=== PATIENT | male | born 1950 | race Caucasian/White ===

== ENCOUNTER 2019-02-18 11:14 | Inpatient (IN) | payer OTHER ==
[~2019-02-18] VITALS: Ht 172.7 cm; Wt 110.8 kg
[2019-02-18] MEDS ORDERED: diltiazem 5mg/ml 5ml inj. IV ONE (11:35)
[2019-02-18 11:48] LABS: BASOPHILS # (AUTO) 0.1 X10'3 (0-0.2); LYMPHOCYTES # (AUTO) 0.8 X10'3 (1.1-4.8); MEAN PLATELET VOLUME 8.8 FL (7.4-10.4); NEUTROPHILS % (AUTO) 89.4 % (42-75)
[2019-02-18 11:50] LABS: BASOPHILS % (AUTO) 0.3 % (0-1); EOSINOPHILS % (AUTO) 0.1 % (0-6); HEMATOCRIT 42.9 % (42.0-52.0); HEMOGLOBIN 14.4 g/dl (14.0-17.9); LYMPHOCYTES % (AUTO) 2.8 % (21-51); MEAN CORPUSCULAR HEMOGLOBIN 30.5 PG (27.0-31.0); MEAN CORPUSCULAR HGB CONC 33.7 g/dL (33.0-36.5); MEAN CORPUSCULAR VOLUME 90.7 FL (78-98); MONOCYTES % (AUTO) 7.4 % (2-12); NEUTROPHILS # (AUTO) 23.9 X10'3 (1.8-7.7); PLATELET COUNT 199 X10'3 (140-440); RED BLOOD COUNT 4.73 X10'6 (4.70-6.10); RED CELL DISTRIBUTION WIDTH 13.2 % (11.5-14.5)
[2019-02-18 11:56] LABS: WHITE BLOOD COUNT 27.1 X10'3 (4.5-11.0)
[2019-02-18] MEDS ORDERED: normal saline 1000ML IV soln IV ONE (12:00)
[2019-02-18] MEDS ORDERED: CefTRIAXone 2gm/D5W 50ml 50 ML IV ONE (12:00)
[2019-02-18 12:10] LABS: PARTIAL THROMBOPLASTIN TIME 31 SECONDS (22-32)
[2019-02-18 12:12] LABS: ALANINE AMINOTRANSFERASE 20 U/L (12-78); ALBUMIN 3.3 G/DL (3.4-5.0); ALBUMIN/GLOBULIN RATIO 0.8 (1.1-1.5); ALKALINE PHOSPHATASE 112 IU/L (46-116); ANION GAP 11 (8-16); ASPARTATE AMINO TRANSFERASE 18 U/L (10-37); BILIRUBIN,TOTAL 0.9 MG/DL (0.1-1.0); BLOOD UREA NITROGEN 20 MG/DL (7-18); BUN/CREATININE RATIO 12.7 (5.4-32.0); CALCIUM 8.7 MG/DL (8.5-10.1); CHLORIDE 104 MMOL/L (99-107); CREATININE 1.58 MG/DL (0.60-1.10); GLUCOSE 165 MG/DL (70-104); POTASSIUM 4.7 MMOL/L (3.5-5.1); SODIUM 138 MMOL/L (135-145); TOTAL CARBON DIOXIDE 23.1 MMOL/L (24-32); TOTAL PROTEIN 7.3 G/DL (6.4-8.2); eGFR 44 ML/MIN
[2019-02-18 12:14] LABS: MAGNESIUM 1.8 MG/DL (1.5-2.4)
[2019-02-18 12:36] LABS: TOTAL CELLS COUNTED 100
[2019-02-18] MEDS: diltiazem-NS 100mg/100ml 100 ML IV SCH ×2 (12:37→20:12)
[2019-02-18 12:39] LABS: PLATELET ESTIMATE NORMAL; TOXIC GRANULATION 1+; TOXIC VACUOLATION 1+
[2019-02-18] MEDS ORDERED: normal saline 1000ml 1,000 ML IV SCH (13:28)
[2019-02-18] MEDS ORDERED: acetaminophen 325mg tablet PO PRN ×2 (13:30)
[2019-02-18] MEDS ORDERED: bisacodyl 10mg suppository rectal RC PRN (13:30)
[2019-02-18] MEDS ORDERED: magnesium 2GM in 50ml NS 50 ML IV PRN (13:30)
[2019-02-18] MEDS ORDERED: ondansetron/PF 4mg/2ml inj IV PRN (13:30)
[2019-02-18] MEDS ORDERED: magnesium 4gm in 100ml NS 100 ML IV PRN (13:30)
[2019-02-18] MEDS ORDERED: HYDROcodone/acetaminophen 5mg/325mg tablet PO PRN (13:30)
[2019-02-18] MEDS ORDERED: morphine 2 MG/ML inj. syringe IV PRN ×2 (13:30)
[2019-02-18] MEDS ORDERED: magnesium Cl slow-release 64mg tablet PO PRN (13:30)
[2019-02-18] MEDS ORDERED: furosemide 40mg/4ml inj IV SCH (13:30)
[2019-02-18] MEDS ORDERED: HYDROcodone/acetaminophen 10/325mg tab PO PRN (13:30)
[2019-02-18] MEDS ORDERED: magnesium hydroxide 30ml (MOM) UD suspension PO PRN (13:30)
[2019-02-18] MEDS ORDERED: mag hydrox/Alum hydrox/simeth 30ml oral suspension PO PRN (13:30)
[2019-02-18] MEDS ORDERED: potassium Cl 20 mEq SR tablet PO PRN ×2 (13:30)
[2019-02-18] MEDS ORDERED: potassium CL 10mEq/100ml bag 100 ML IV PRN ×2 (13:30)
[2019-02-18] MEDS ORDERED: diltiazem-D5W 125mg/125ml 125 ML IV SCH (13:30)
[2019-02-18] MEDS ORDERED: METO100T14 PO (14:33)
[2019-02-18] MEDS ORDERED: POTA10TA15 PO (14:33)
[2019-02-18] MEDS ORDERED: LOSA50TA64 PO (14:37)
[2019-02-18] MEDS ORDERED: WARF-55 PO ×2 (14:37→14:38)
[2019-02-18] MEDS ORDERED: DILT-36 PO (14:39)
[2019-02-18] MEDS ORDERED: FURO40TA4 PO ×2 (14:41→14:42)
[2019-02-18] MEDS ORDERED: METF-516 PO (14:44)
[2019-02-18] MEDS ORDERED: ATOR-2 PO (14:45)
[2019-02-18] MEDS ORDERED: INSU100V43 SQ (14:51)
[2019-02-18] MEDS ORDERED: LANTUS SQ (14:51)
[2019-02-18] MEDS ORDERED: DIGO125T78 PO (14:54)
[2019-02-18 15:00] VITALS: BP 158/97
[2019-02-18] MEDS ORDERED: dextrose 50%-water 50ml dispensing syringe IV PRN ×2 (15:20)
[2019-02-18] MEDS ORDERED: MESSAGE TO PHARMACY PO ONE (15:20)
[2019-02-18] MEDS ORDERED: glucagon, human recombinant 1mg kit SUBCUT PRN (15:20)
[2019-02-18] MEDS ORDERED: dextrose ORAL solution 15 GM/59 ML bottle PO PRN ×2 (15:20)
--- NOTE | 2019-02-18 15:30 | NUR ---
Patient arrived to the unit accompanied by ED personnel. Cardizem running at 15/hr , patient set up on mobile monitoring, belonging placed at the bedside, patient oriented to room and call light. Will continue to monitor.
[2019-02-18 15:41] LABS: HEMOGLOBIN A1C 8.8 % (4.5-6.2)
[2019-02-18] MEDS: vancomycin/NS 1 GM ADD-VANTAGE 250 ML IV SCH ×2 (16:42→20:40)
[2019-02-18 17:38] LABS: BASOPHILS # (AUTO) 0.1 X10'3 (0-0.2); BASOPHILS % (AUTO) 0.4 % (0-1); EOSINOPHILS % (AUTO) 0 % (0-6); HEMATOCRIT 40.8 % (42.0-52.0); HEMOGLOBIN 13.6 g/dl (14.0-17.9); LYMPHOCYTES # (AUTO) 1.3 X10'3 (1.1-4.8); LYMPHOCYTES % (AUTO) 5.3 % (21-51); MEAN CORPUSCULAR HGB CONC 33.3 g/dL (33.0-36.5); MEAN CORPUSCULAR VOLUME 90.2 FL (78-98); MEAN PLATELET VOLUME 8.6 FL (7.4-10.4); MONOCYTES # (AUTO) 2.2 X10'3 (0-0.9); MONOCYTES % (AUTO) 8.9 % (2-12); NEUTROPHILS # (AUTO) 21.4 X10'3 (1.8-7.7); NEUTROPHILS % (AUTO) 85.4 % (42-75); PLATELET COUNT 174 X10'3 (140-440); RED BLOOD COUNT 4.53 X10'6 (4.70-6.10); RED CELL DISTRIBUTION WIDTH 13.3 % (11.5-14.5)
--- NOTE | 2019-02-18 17:44 | NUR ---
Sent page to Dr. Stokes: PAGER ID: [phone] MESSAGE: [id number] Marcella: ADRIANNE critical WBC now 25, down from 27. Thanks, Charline [email or web address]
[2019-02-18 17:50] LABS: ALANINE AMINOTRANSFERASE 19 U/L (12-78); ALBUMIN/GLOBULIN RATIO 0.8 (1.1-1.5); ALKALINE PHOSPHATASE 97 IU/L (46-116); ANION GAP 12 (8-16); ASPARTATE AMINO TRANSFERASE 18 U/L (10-37); BLOOD UREA NITROGEN 20 MG/DL (7-18); CALCIUM 8.4 MG/DL (8.5-10.1); CHLORIDE 105 MMOL/L (99-107); CREATININE 1.43 MG/DL (0.60-1.10); GLUCOSE 178 MG/DL (70-104); POTASSIUM 4.6 MMOL/L (3.5-5.1); SODIUM 138 MMOL/L (135-145); TOTAL CARBON DIOXIDE 21.5 MMOL/L (24-32); TOTAL PROTEIN 6.8 G/DL (6.4-8.2); eGFR 49 ML/MIN
[2019-02-18 18:00] VITALS: BP_SYST 140; BP_SYST 165; BP_DIAS 103; BP_DIAS 68
[2019-02-18 18:20] LABS: TOTAL CELLS COUNTED 100
[2019-02-18 18:22] LABS: PLATELET ESTIMATE NORMAL; TOXIC GRANULATION 1+; TOXIC VACUOLATION 1+
--- NOTE | 2019-02-18 18:30 | NUR ---
Patient in room PCU 3023. I have received report from Charline CERDA and had the opportunity to ask questions and assume patient care.
--- NOTE | 2019-02-18 18:30 | NUR ---
Patient in room PCU 3023. I have received report from Charline CERDA and had the opportunity to ask questions and assume patient care.
--- NOTE | 2019-02-18 18:35 | NUR ---
[place]rientee documentation: I have reviewed and agree with all interventions, assessments performed and documented by ZAIDA Clements. [place] Medication Administration: For this medication-pass time frame, all medication were reviewed, dispensed, administered and documented per hospital policy by ZAIDA Clements.
--- NOTE | 2019-02-18 18:35 | NUR ---
Problems reprioritized. Patient report given, questions answered & plan of care reviewed with Michelle CERDA and Kaitlyn CERDA.
[2019-02-18 20:00] VITALS: BP 194/167
[2019-02-18] MEDS ORDERED: non-formulary drug (Metoprolol Tartrate 1 TAB) PO SCH (20:00)
[2019-02-18] MEDS ORDERED: vancomycin/NS 1 GM ADD-VANTAGE 250 ML X 1 DOSE IV ONE (20:20)
[2019-02-18] MEDS: furosemide 40mg/4ml inj IV SCH (20:39)
[2019-02-18] MEDS: metoprolol tartrate 50mg tablet PO SCH (20:39)
[2019-02-18] MEDS: lactobacillus rhamnosus 10,000 MMU CELLS/CAPSULE PO SCH (20:40)
[2019-02-18] MEDS ORDERED: temazepam 15mg capsule PO PRN (21:00)
[2019-02-18] MEDS ORDERED: insulin glargine (Lantus) pen - multi-dose SQ SCH (21:00)
[2019-02-18] MEDS ORDERED: warfarin 10mg tablet PO SCH (21:00)
[2019-02-18] MEDS ORDERED: warfarin 10mg tablet PO ONE (21:00)
--- NOTE | 2019-02-18 21:02 | NUR ---
2nd bag of initial vanco dose was late coming from pharmacy. infusing now. unable to give zosyn yet due to compatibility issues, unable to get second IV so far.
--- NOTE | 2019-02-18 21:19 | NUR ---
pt stated he is not sure if he took coumadin last night because he wasn't feeling good
[2019-02-18 21:30] VITALS: BP 179/152
[2019-02-18] MEDS: insulin glargine (Lantus) pen - multi-dose SQ SCH (21:50)
[2019-02-18 22:00] VITALS: BP 150/64
[2019-02-18] MEDS: piperacillin/tazo 3.375gm/50ml 50 ML IV SCH (22:40)
[2019-02-18 23:30] VITALS: BP 137/88
--- NOTE | 2019-02-18 23:32 | NUR ---
notified by lab they were unable to draw 12 hour troponin. First 3 were all negative.
[2019-02-19] VITALS (16 sets, daily range): BP systolic 113–171; BP diastolic 58–98
[2019-02-19] MEDS: diltiazem-NS 100mg/100ml 100 ML IV SCH (02:13)
--- NOTE | 2019-02-19 04:58 | NUR ---
PATIENT MAY POSSIBLY HAVE SOME SLEEP APNEA. THERE WERE A FEW TIMES THAT BREATHING WAS VERY SHALLOW AND APPEARED TO PAUSE, FOLLOWED BY SNORING. PT DENIED HX OF SLEEP APNEA.
--- NOTE | 2019-02-19 05:45 | NUR ---
oRIENTEE documentation: I have reviewed and agree with all interventions, MEDS GIVEN, assessments performed and documented by ARTIS CERDA.
[2019-02-19 06:04] LABS: BASOPHILS # (AUTO) 0.1 X10'3 (0-0.2); BASOPHILS % (AUTO) 0.3 % (0-1); EOSINOPHILS % (AUTO) 0 % (0-6); HEMATOCRIT 37.6 % (42.0-52.0); HEMOGLOBIN 12.5 g/dl (14.0-17.9); LYMPHOCYTES # (AUTO) 1.4 X10'3 (1.1-4.8); LYMPHOCYTES % (AUTO) 6.6 % (21-51); MEAN CORPUSCULAR HEMOGLOBIN 30.3 PG (27.0-31.0); MEAN CORPUSCULAR HGB CONC 33.2 g/dL (33.0-36.5); MEAN CORPUSCULAR VOLUME 91.1 FL (78-98); MEAN PLATELET VOLUME 9.2 FL (7.4-10.4); MONOCYTES # (AUTO) 1.6 X10'3 (0-0.9); MONOCYTES % (AUTO) 7.7 % (2-12); NEUTROPHILS # (AUTO) 18.3 X10'3 (1.8-7.7); NEUTROPHILS % (AUTO) 85.4 % (42-75); PLATELET COUNT 162 X10'3 (140-440); RED BLOOD COUNT 4.12 X10'6 (4.70-6.10); RED CELL DISTRIBUTION WIDTH 13.4 % (11.5-14.5); WHITE BLOOD COUNT 21.5 X10'3 (4.5-11.0)
[2019-02-19 06:12] LABS: ALANINE AMINOTRANSFERASE 16 U/L (12-78); ALBUMIN 2.7 G/DL (3.4-5.0); ALBUMIN/GLOBULIN RATIO 0.7 (1.1-1.5); ALKALINE PHOSPHATASE 83 IU/L (46-116); ANION GAP 11 (8-16); ASPARTATE AMINO TRANSFERASE 14 U/L (10-37); BILIRUBIN,TOTAL 1.3 MG/DL (0.1-1.0); BLOOD UREA NITROGEN 21 MG/DL (7-18); BUN/CREATININE RATIO 14.2 (5.4-32.0); CALCIUM 7.8 MG/DL (8.5-10.1); CHLORIDE 103 MMOL/L (99-107); CHOL/HDL RATIO 2.2 (0.00-4.99); CHOLESTEROL 94 MG/DL (0-200); CREATININE 1.48 MG/DL (0.60-1.10); GLUCOSE 234 MG/DL (70-104); HDL CHOLESTEROL 43 MG/DL (35-60); LDL CHOLESTEROL 46 MG/DL (50-100); MAGNESIUM 1.8 MG/DL (1.5-2.4); PHOSPHORUS 2.9 MG/DL (2.3-4.5); POTASSIUM 4.5 MMOL/L (3.5-5.1); SODIUM 137 MMOL/L (135-145); TOTAL PROTEIN 6.4 G/DL (6.4-8.2); TRIGLYCERIDES 78 MG/DL (20-135); eGFR 47 ML/MIN
--- NOTE | 2019-02-19 06:18 | NUR ---
Problems reprioritized. Patient report given, questions answered & plan of care reviewed with Edy avendaño.
--- NOTE | 2019-02-19 06:19 | NUR ---
Patient in room PCU 3023. I have received report from ZAIDA Martinez and had the opportunity to ask questions and assume patient care.
--- NOTE | 2019-02-19 06:19 | NUR ---
Problems reprioritized. Patient report given, questions answered & plan of care reviewed with Carla CERDA.
[2019-02-19] MEDS ORDERED: non-formulary drug (Potassium Chloride 1 TAB) PO SCH (08:00)
[2019-02-19] MEDS ORDERED: CefTRIAXone/D5W-Rocephin 1gm 50 ML IV SCH (08:00)
[2019-02-19] MEDS ORDERED: non-formulary drug (Atorvastatin Calcium 1 TAB) PO SCH (08:00)
[2019-02-19] MEDS: K and/or MAG REPLACEMENT MC SCH (08:00)
[2019-02-19] MEDS: lactobacillus rhamnosus 10,000 MMU CELLS/CAPSULE PO SCH ×2 (08:40→19:54)
[2019-02-19] MEDS: furosemide 40mg/4ml inj IV SCH ×2 (08:40→19:53)
[2019-02-19] MEDS: atorvastatin 20mg tablet PO SCH (08:42)
[2019-02-19] MEDS: metoprolol tartrate 50mg tablet PO SCH ×2 (08:42→19:54)
[2019-02-19] MEDS: digoxin 125mcg (0.125mg) tablet PO SCH (08:43)
[2019-02-19] MEDS: potassium chloride 10mEq ER tablet PO SCH (08:43)
[2019-02-19] MEDS: piperacillin/tazo 3.375gm/50ml 50 ML IV SCH ×3 (08:43→17:15)
[2019-02-19] MEDS: losartan 50mg tablet PO SCH (08:44)
[2019-02-19] MEDS: insulin Lispro (HumaLOG) vial - multi-dose SQ SCH ×3 (09:01→19:37)
[2019-02-19] MEDS ORDERED: diltiazem-NS 100mg/100ml 100 ML IV SCH (09:30)
[2019-02-19] MEDS ORDERED: metoprolol tartrate 1mg/ml inj IV PRN (09:45)
--- NOTE | 2019-02-19 11:58 | NUR ---
Message to Dr. Quiroga - Mr. Crowder RM [id number] - We need an order for a heart healthy carb controlled diet. He is diabetic. Thank you, Carla, [facility] ext [phone]
--- NOTE | 2019-02-19 16:20 | NUR ---
DM consult: Pt admit w/ sepsis, possible PNA or cellulitis to RLE per MD note. Hx T2DM A1C 8.8. PO 50% avg first meals on 2L fluid-restriction/heart healthy diet. RD d/w RN for carb controlled diet per MD approval given hx. Pt declined verbal DM ed during RD visit; written DM ed w/ RD contact information and CDE Course schedule provided. LBM 02/17. Pt reports no current dietary concerns. Will monitor for additional protein needs this admit. Rec: 1. advance to carb controlled/heart healthy/fluid-restricted per MD approval 2. monitor for ONS needs if PO remains low 3. wt per rx Addendum: 02/19/19 at [address] Amended: Links added.
[2019-02-19] MEDS ORDERED: CefTRIAXone/D5W-Rocephin 1gm 50 ML IV ONE (16:35)
--- NOTE | 2019-02-19 16:55 | NUR ---
Attempt to ambulate patient per his request. Patient states he is weak and unsteady on his feet. States he has not been ambulating lately at home. paged for a PT eval order. Dr. Quiroga paged and message left.
--- NOTE | 2019-02-19 18:23 | NUR ---
Problems reprioritized. Patient report given, questions answered & plan of care reviewed with ZAIDA Seymour.
[2019-02-19 20:57] LABS: CLARITY,URINE CLEAR (Clear); COLOR,URINE YELLOW (Yellow); GLUCOSE, URINE 100 mg/dl (Neg); KETONES,URINE NEGATIVE (Neg); LEUKOCYTE ESTERASE ,URINE NEGATIVE (Neg); NITRITES, URINE NEGATIVE (Neg); OCCULT BLOOD,URINE MODERATE (Neg); PH,URINE 5.5 (4.8-8.0); PROTEIN,URINE 30 mg/dl (Neg); UROBILINOGEN,URINE 0.2 E.U/dL (0.2-1.0)
[2019-02-19] MEDS ORDERED: warfarin 10mg tablet PO ONE (21:00)
[2019-02-19 21:03] LABS: UA COLLECTION TYPE CLN CATCH MIDSTREAM
[2019-02-19 21:04] LABS: BACTERIA,URINE NONE SEEN /HPF (Neg); MUCUS STRANDS NONE SEEN /LPF (Neg); RBC,URINE 0-2 /HPF (0-2); SQUAMOUS EPITHELIAL CELL,UR FEW /LPF (FEW); WBC,URINE NONE SEEN /HPF (0-4)
[2019-02-19] MEDS: insulin glargine (Lantus) pen - multi-dose SQ SCH (21:36)
[2019-02-20] MEDS: piperacillin/tazo 3.375gm/50ml 50 ML IV SCH ×3 (00:19→16:23)
[2019-02-20 02:00] VITALS: BP_SYST 154; BP_SYST 161; BP_DIAS 102; BP_DIAS 94
[2019-02-20 05:25] LABS: BASOPHILS % (AUTO) 0.2 % (0-1); EOSINOPHILS % (AUTO) 0.1 % (0-6); HEMATOCRIT 35.6 % (42.0-52.0); HEMOGLOBIN 11.8 g/dl (14.0-17.9); LYMPHOCYTES # (AUTO) 0.9 X10'3 (1.1-4.8); LYMPHOCYTES % (AUTO) 5.3 % (21-51); MEAN CORPUSCULAR HEMOGLOBIN 30.1 PG (27.0-31.0); MEAN CORPUSCULAR HGB CONC 33.2 g/dL (33.0-36.5); MEAN CORPUSCULAR VOLUME 90.9 FL (78-98); MONOCYTES # (AUTO) 1.1 X10'3 (0-0.9); MONOCYTES % (AUTO) 6.4 % (2-12); NEUTROPHILS # (AUTO) 15.5 X10'3 (1.8-7.7); PLATELET COUNT 144 X10'3 (140-440); RED BLOOD COUNT 3.92 X10'6 (4.70-6.10); RED CELL DISTRIBUTION WIDTH 13.5 % (11.5-14.5); WHITE BLOOD COUNT 17.6 X10'3 (4.5-11.0)
[2019-02-20 05:46] LABS: ALANINE AMINOTRANSFERASE 17 U/L (12-78); ALBUMIN 2.2 G/DL (3.4-5.0); ALBUMIN/GLOBULIN RATIO 0.6 (1.1-1.5); ALKALINE PHOSPHATASE 86 IU/L (46-116); ANION GAP 9 (8-16); ASPARTATE AMINO TRANSFERASE 18 U/L (10-37); BILIRUBIN,TOTAL 0.9 MG/DL (0.1-1.0); BLOOD UREA NITROGEN 22 MG/DL (7-18); BUN/CREATININE RATIO 16.8 (5.4-32.0); CALCIUM 7.9 MG/DL (8.5-10.1); CHLORIDE 106 MMOL/L (99-107); CREATININE 1.31 MG/DL (0.60-1.10); GLUCOSE 195 MG/DL (70-104); MAGNESIUM 2.2 MG/DL (1.5-2.4); PHOSPHORUS 2.2 MG/DL (2.3-4.5); POTASSIUM 3.9 MMOL/L (3.5-5.1); SODIUM 139 MMOL/L (135-145); TOTAL CARBON DIOXIDE 23.8 MMOL/L (24-32); TOTAL PROTEIN 6.2 G/DL (6.4-8.2); eGFR 54 ML/MIN
[2019-02-20 06:00] VITALS: BP 147/83
--- NOTE | 2019-02-20 06:13 | NUR ---
[place]rientee documentation: I have reviewed and agree with all interventions, assessments performed and documented by Joanna CERDA.
[2019-02-20] MEDS ORDERED: VANCOMYCIN LEVEL IV ONE (06:30)
--- NOTE | 2019-02-20 06:31 | NUR ---
Problems reprioritized. Patient report given, questions answered & plan of care reviewed with Luigi CERDA.
--- NOTE | 2019-02-20 06:35 | NUR ---
Patient in room PCU 3023. I have received report from Dawn CERDA and had the opportunity to ask questions and assume patient care. Pt is in bed resting, all needs met at this time. will continue to monitor.
[2019-02-20] MEDS: furosemide 40mg/4ml inj IV SCH ×2 (07:39→19:30)
[2019-02-20] MEDS: metoprolol tartrate 50mg tablet PO SCH ×2 (07:40→19:28)
[2019-02-20] MEDS: lactobacillus rhamnosus 10,000 MMU CELLS/CAPSULE PO SCH ×2 (07:41→19:27)
[2019-02-20] MEDS: losartan 50mg tablet PO SCH (07:41)
[2019-02-20] MEDS: potassium chloride 10mEq ER tablet PO SCH (07:41)
[2019-02-20] MEDS: CefTRIAXone 2gm/D5W 50ml 50 ML IV SCH (07:41)
[2019-02-20] MEDS: atorvastatin 20mg tablet PO SCH (07:41)
[2019-02-20] MEDS: digoxin 125mcg (0.125mg) tablet PO SCH (07:42)
[2019-02-20] MEDS: K and/or MAG REPLACEMENT MC SCH (08:00)
[2019-02-20] MEDS: insulin Lispro (HumaLOG) vial - multi-dose SQ SCH ×3 (08:25→18:53)
[2019-02-20 11:00] VITALS: BP 108/77
[2019-02-20 15:00] VITALS: BP 108/77
--- NOTE | 2019-02-20 16:03 | NUR ---
PRESSURE ULCER EDUCATION: DEFINITION: A pressure ulcer is an area of skin that breaks down when you stay in one position too long. The constant pressure against the skin reduces the blood flow to that area and the affected tissue dies. CAUSES: "Being bedridden or in a wheelchair "Fragile skin "Having a chronic condition, such as diabetes or vascular disease "Inability to move certain parts of your body without assistance "Older age "Incontinence of urine or stool SYMPTOMS: "A reddened area that DOES NOT turn white when pressed on - this can be the beginning of a pressure ulcer "A blister, deep sore or a crater - these can be advanced pressure ulcers FIRST AID: "Relieve the pressure on this area "Keep the area clean and dry "Call your primary doctor if you see any of the above symptoms "DO NOT massage the area "DO NOT use a donut shaped or ring shaped pillow- these actually interfere with the blood flow and cause complications PREVENTION: "Check for pressure ulcers everyday "Change position at least every two hours to relieve pressure "Use items that help relieve pressure- pillows, sheepskin, foam padding, and powders. "Keep skin clean and dry "Eat healthy well balanced meals "Exercise daily IF YOU SEE ANY OF THESE SYMPTOMS WHILE IN THE HOSPITAL - TELL YOUR NURSE IMMEDIATELY. IF YOU SEE ANY OF THESE SYMPTOMS WHILE AT HOME OR HAVE ANY QUESTIONS OR CONCERNS ABOUT PRESSURE ULCERS - CALL YOUR PRIMARY DOCTOR IMMEDIATELY. Addendum: 02/20/19 at 1603 by Jessica Prieto RN Amended: Links added.
--- NOTE | 2019-02-20 18:00 | NUR ---
Patient in room PCU 3023. I have received report from Luigi CERDA and had the opportunity to ask questions and assume patient care.
--- NOTE | 2019-02-20 18:20 | NUR ---
Problems reprioritized. Patient report given, questions answered & plan of care reviewed with Cary CERDA.
[2019-02-20 19:00] VITALS: BP 139/88
[2019-02-20] MEDS ORDERED: warfarin 3mg tablet PO ONE (21:00)
[2019-02-20] MEDS: insulin glargine (Lantus) pen - multi-dose SQ SCH (21:00)
[2019-02-20 22:00] VITALS: BP 129/65
[2019-02-21 02:00] VITALS: BP 139/88
--- NOTE | 2019-02-21 05:18 | NUR ---
Patient walked in room and into the bathroom multiple times, slept well, and awaiting to be discharged.
--- NOTE | 2019-02-21 05:50 | NUR ---
Afib RVR Happened when patient was walking back to bed, was a bit short of breath, HR in the 160s. MD Herr notified, "give him a bit of time to rest and then call if still in RVR". Patient's heart rate now in 110-120s after a bit of rest and feeling better but anxious about the situation. Patient is now considering taking morphine for pain for the foot. Patient will now stay in bed until PT comes. Report given to Luigi CERDA.
[2019-02-21 06:00] VITALS: BP 147/83
--- NOTE | 2019-02-21 06:16 | NUR ---
Patient in room PCU 3023. I have received report from Cary CERDA and had the opportunity to ask questions and assume patient care. Pt is in bed resting, all needs met at this time, will continue to monitor.
--- NOTE | 2019-02-21 06:26 | NUR ---
Problems reprioritized. Patient report given, questions answered & plan of care reviewed with Luigi CERDA.
[2019-02-21 07:19] LABS: BASOPHILS # (AUTO) 0.1 X10'3 (0-0.2); BASOPHILS % (AUTO) 0.5 % (0-1); EOSINOPHILS % (AUTO) 0.3 % (0-6); HEMOGLOBIN 12.3 g/dl (14.0-17.9); LYMPHOCYTES # (AUTO) 1.5 X10'3 (1.1-4.8); LYMPHOCYTES % (AUTO) 9.8 % (21-51); MEAN CORPUSCULAR HGB CONC 33.4 g/dL (33.0-36.5); MEAN CORPUSCULAR VOLUME 89.8 FL (78-98); MEAN PLATELET VOLUME 9.3 FL (7.4-10.4); MONOCYTES # (AUTO) 1.2 X10'3 (0-0.9); MONOCYTES % (AUTO) 7.9 % (2-12); NEUTROPHILS # (AUTO) 12.4 X10'3 (1.8-7.7); NEUTROPHILS % (AUTO) 81.5 % (42-75); PLATELET COUNT 181 X10'3 (140-440); RED BLOOD COUNT 4.11 X10'6 (4.70-6.10); RED CELL DISTRIBUTION WIDTH 13.5 % (11.5-14.5); WHITE BLOOD COUNT 15.2 X10'3 (4.5-11.0)
[2019-02-21] MEDS: atorvastatin 20mg tablet PO SCH (07:28)
[2019-02-21] MEDS: metoprolol tartrate 50mg tablet PO SCH ×2 (07:29→19:26)
[2019-02-21] MEDS: digoxin 125mcg (0.125mg) tablet PO SCH (07:29)
[2019-02-21] MEDS: lactobacillus rhamnosus 10,000 MMU CELLS/CAPSULE PO SCH ×2 (07:30→19:27)
[2019-02-21] MEDS: CefTRIAXone 2gm/D5W 50ml 50 ML IV SCH (07:30)
[2019-02-21] MEDS: losartan 50mg tablet PO SCH (07:30)
[2019-02-21] MEDS: furosemide 40mg/4ml inj IV SCH ×2 (07:30→19:25)
[2019-02-21] MEDS: potassium chloride 10mEq ER tablet PO SCH (07:30)
[2019-02-21 07:45] LABS: ALANINE AMINOTRANSFERASE 21 U/L (12-78); ALBUMIN 2.2 G/DL (3.4-5.0); ALBUMIN/GLOBULIN RATIO 0.5 (1.1-1.5); ALKALINE PHOSPHATASE 99 IU/L (46-116); ANION GAP 12 (8-16); ASPARTATE AMINO TRANSFERASE 26 U/L (10-37); BILIRUBIN,TOTAL 0.7 MG/DL (0.1-1.0); BLOOD UREA NITROGEN 33 MG/DL (7-18); BUN/CREATININE RATIO 25.2 (5.4-32.0); CALCIUM 8.1 MG/DL (8.5-10.1); CHLORIDE 105 MMOL/L (99-107); CREATININE 1.31 MG/DL (0.60-1.10); GLUCOSE 143 MG/DL (70-104); MAGNESIUM 2.4 MG/DL (1.5-2.4); PHOSPHORUS 2.6 MG/DL (2.3-4.5); POTASSIUM 3.7 MMOL/L (3.5-5.1); SODIUM 140 MMOL/L (135-145); TOTAL PROTEIN 6.6 G/DL (6.4-8.2); eGFR 54 ML/MIN
[2019-02-21] MEDS: K and/or MAG REPLACEMENT MC SCH (08:00)
[2019-02-21] MEDS: insulin Lispro (HumaLOG) vial - multi-dose SQ SCH ×3 (08:13→18:55)
--- NOTE | 2019-02-21 09:41 | NUR ---
Spoke to Dr. Quiroga in regards to pt's increased redness to RLE Cellulitis, received orders to start Pharmacy dosed IV Vanco, also in regards to pts increased HR, Dr. Quiroga is aware and states that increased HR is d/t pt is deconditioned and he wants the pt to continue to ambulate and stretch throughout the day.
[2019-02-21 11:00] VITALS: BP 115/88
[2019-02-21] MEDS ORDERED: metoprolol tartrate 25mg tablet PO ONE (12:20)
[2019-02-21 15:00] VITALS: BP 131/72
--- NOTE | 2019-02-21 16:21 | NUR ---
Pt refuses to have current PIV removed and replaced per facility protocol, states that he will be leaving tomorrow and thinks it will be unnecessary. Addendum: 02/21/19 at 1623 by Luigi Montgomery RN Amended: Links added.
--- NOTE | 2019-02-21 18:00 | NUR ---
Problems reprioritized. Patient report given, questions answered & plan of care reviewed with Luigi CERDA.
--- NOTE | 2019-02-21 18:38 | NUR ---
Problems reprioritized. Patient report given, questions answered & plan of care reviewed with Cary CERDA.
[2019-02-21 19:00] VITALS: BP 125/80
[2019-02-21] MEDS: metoprolol tartrate 25mg tablet PO SCH (19:27)
[2019-02-21] MEDS ORDERED: warfarin 10mg tablet PO ONE (21:00)
[2019-02-21] MEDS: insulin glargine (Lantus) pen - multi-dose SQ SCH (21:23)
[2019-02-21 23:00] VITALS: BP 138/38
[2019-02-22 03:00] VITALS: BP 164/95
[2019-02-22 06:00] VITALS: BP 164/99
--- NOTE | 2019-02-22 06:25 | NUR ---
Patient in room PCU 3023. I have received report from Cary CERDA and had the opportunity to ask questions and assume patient care. Pt is in bed awake, all needs met at this time, will continue to monitor.
--- NOTE | 2019-02-22 06:29 | NUR ---
Problems reprioritized. Patient report given, questions answered & plan of care reviewed with Luigi CERDA.
[2019-02-22 07:05] LABS: BASOPHILS # (AUTO) 0.1 X10'3 (0-0.2); BASOPHILS % (AUTO) 0.4 % (0-1); EOSINOPHILS # (AUTO) 0.2 X10'3 (0-0.9); EOSINOPHILS % (AUTO) 1.3 % (0-6); HEMATOCRIT 36.7 % (42.0-52.0); HEMOGLOBIN 12.2 g/dl (14.0-17.9); LYMPHOCYTES # (AUTO) 1.7 X10'3 (1.1-4.8); LYMPHOCYTES % (AUTO) 14.2 % (21-51); MEAN CORPUSCULAR HEMOGLOBIN 30.1 PG (27.0-31.0); MEAN CORPUSCULAR HGB CONC 33.4 g/dL (33.0-36.5); MEAN CORPUSCULAR VOLUME 90.1 FL (78-98); MEAN PLATELET VOLUME 8.8 FL (7.4-10.4); MONOCYTES # (AUTO) 1.4 X10'3 (0-0.9); MONOCYTES % (AUTO) 11.6 % (2-12); NEUTROPHILS # (AUTO) 8.5 X10'3 (1.8-7.7); NEUTROPHILS % (AUTO) 72.5 % (42-75); PLATELET COUNT 201 X10'3 (140-440); RED BLOOD COUNT 4.07 X10'6 (4.70-6.10); RED CELL DISTRIBUTION WIDTH 13.3 % (11.5-14.5); WHITE BLOOD COUNT 11.8 X10'3 (4.5-11.0)
[2019-02-22] MEDS: furosemide 40mg/4ml inj IV SCH (07:12)
[2019-02-22] MEDS: metoprolol tartrate 50mg tablet PO SCH (07:13)
[2019-02-22] MEDS: digoxin 125mcg (0.125mg) tablet PO SCH (07:13)
[2019-02-22] MEDS: potassium chloride 10mEq ER tablet PO SCH (07:14)
[2019-02-22] MEDS: metoprolol tartrate 25mg tablet PO SCH (07:14)
[2019-02-22] MEDS: atorvastatin 20mg tablet PO SCH (07:14)
[2019-02-22] MEDS: CefTRIAXone 2gm/D5W 50ml 50 ML IV SCH (07:14)
[2019-02-22] MEDS: lactobacillus rhamnosus 10,000 MMU CELLS/CAPSULE PO SCH (07:14)
[2019-02-22] MEDS: losartan 50mg tablet PO SCH (07:14)
[2019-02-22 07:25] LABS: ALANINE AMINOTRANSFERASE 32 U/L (12-78); ALBUMIN 2.1 G/DL (3.4-5.0); ALBUMIN/GLOBULIN RATIO 0.5 (1.1-1.5); ALKALINE PHOSPHATASE 78 IU/L (46-116); ANION GAP 13 (8-16); ASPARTATE AMINO TRANSFERASE 32 U/L (10-37); BILIRUBIN,TOTAL 0.5 MG/DL (0.1-1.0); BLOOD UREA NITROGEN 35 MG/DL (7-18); BUN/CREATININE RATIO 28.2 (5.4-32.0); CHLORIDE 106 MMOL/L (99-107); CREATININE 1.24 MG/DL (0.60-1.10); GLUCOSE 175 MG/DL (70-104); MAGNESIUM 2.4 MG/DL (1.5-2.4); PHOSPHORUS 3.2 MG/DL (2.3-4.5); POTASSIUM 3.7 MMOL/L (3.5-5.1); SODIUM 140 MMOL/L (135-145); TOTAL CARBON DIOXIDE 21.3 MMOL/L (24-32); TOTAL PROTEIN 6.5 G/DL (6.4-8.2); eGFR 58 ML/MIN
[2019-02-22 07:30] VITALS: BP 137/68
[2019-02-22] MEDS: K and/or MAG REPLACEMENT MC SCH (08:00)
--- NOTE | 2019-02-22 08:00 | NUR ---
PAGER ID: [phone] MESSAGE: [phone] Ivan Crowder: ADRIANNE Critical INR 4.7, received 10mg Coumadin last night, no active bleeding noted. Please advise. Thanks Luigi [phone]
[2019-02-22] MEDS: insulin Lispro (HumaLOG) vial - multi-dose SQ SCH ×2 (08:58→12:57)
--- NOTE | 2019-02-22 10:35 | NUR ---
Resent Page PAGER ID: [phone] MESSAGE: MESSAGE: [id number] Ivan Crowder: ADRIANNE Critical INR 4.7, received 10mg Coumadin last night, no active bleeding noted. Please advise. Thanks Luigi [phone]
[2019-02-22] MEDS ORDERED: AMOX-422 PO (12:01)
[2019-02-22] MEDS ORDERED: LACT1CAP26 PO (12:01)
[2019-02-22] MEDS ORDERED: FURO40TA4 PO (12:01)
[2019-02-22] MEDS ORDERED: DOXY100C2 PO (12:01)
[2019-02-22] MEDS ORDERED: FURO-149 PO (12:04)
--- NOTE | 2019-02-22 13:02 | NUR ---
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
--- NOTE | 2019-02-22 15:35 | NUR ---
Pt is stable for discharge per md orders, discharge instructions reviewed w/ pt all questions answered, New med prescription scripts handed to pt d/t pt uses a mail in pharmacy, Tele box 44 removed and returned, PIV dc'ed and clean dry dressing in place, Pt wheeled down to lobby with 1 hospital staff, Pt discharged @ 1530 via private vehicle, all belongings w/ pt at time of discharge including new FWW.
[2019-02-22] MEDS ORDERED: VANCOMYCIN LEVEL IV ONE (21:30)
[2019-02-23] MEDS ORDERED: warfarin 7.5mg tablet PO SCH (21:00)
== END 2019-02-22 15:30 | disposition home or self-care (01) | DRG 871 ==
LOC: ER 11:16 → PCU 3S 15:24
PROVIDERS: ADMIT Family Medicine; ATTEND Hospitalist
DX: A41.9 Sepsis, unspecified organism (principal); I50.33 Acute on chronic diastolic (congestive) heart failure; N17.9 Acute kidney failure, unspecified; E87.2 Acidosis; I13.0 Hypertensive heart and chronic kidney disease with heart failure and stage 1 through stage 4 chronic kidney disease, or unspecified chronic kidney disease; L03.115 Cellulitis of right lower limb; E11.22 Type 2 diabetes mellitus with diabetic chronic kidney disease; E78.5 Hyperlipidemia, unspecified; E66.9 Obesity, unspecified; I48.91 Unspecified atrial fibrillation; N18.9 Chronic kidney disease, unspecified; Z79.01 Long term (current) use of anticoagulants; Z85.828 Personal history of other malignant neoplasm of skin; Z68.37 Body mass index [BMI] 37.0-37.9, adult; Z88.8 Allergy status to other drugs, medicaments and biological substances
CPT/HCPCS: 36415; 71045; 71250; 80053; 80061; 80162; 81001; 82948; 83036; 83605; 83735; 83880; 84100; 84145; 84443; 84484; 85025; 85610; 85730; 87040; 87081; 93005; 93306; 93971; 96365; 96375; 97110; 97112; 97116; 97161; 97530; 99285; G0378; J0696; J1815; J1940; J2543; J3370; J3490